=== PATIENT | male | born 1990 | race Caucasian/White ===

== ENCOUNTER 2018-03-29 08:04 | Observation (INO) ==
[2018-03-29] MEDS ORDERED: OXYCODONE Oral CONC 10 MG/0.5 ML ORAL.SYG SL ONE (10:41)
[2018-03-29] MEDS ORDERED: Piperacillin/Tazobactam 3.375 GM in 0.9 % Sodium Chloride Mini Bag 100 ML IVPB ONE (11:19)
--- NOTE | 2018-03-29 14:28 | Anesthesia Evaluation PreOp ---
Date of Encounter: 03/29/18 Time of Encounter: 14:25 - Past History Planned Operation: Laparoscopic Appendectomy Cardiac History: Denies any Significant Hx Pulmonary History: Denies Any Significant HX INVENTORY AND PRICING ASSOCIATE History: Denies Any Significant HX Other Medical History: GERD, Other (obesity BMI=42.7) Anesthesia History: Past Anesthesia (no prior general anesthesia) Alcohol Use: rarely Drug use: none Medications and Allergies No Known Home Drugs 03/29/18 [History] 3 Allergy/AdvReac Type Severity Reaction Status Date / Time No Known Allergies Allergy Verified 03/29/18 04:24 - Meds/Allergy Pre-op Review Medications Reviewed: Yes Allergies Reviewed: Yes Beta Blockers on Current Med List: No Anesthesia Results - Labs Laboratory Tests 03/29/18 05:00 PT 14.0 H INR 1.2 APTT 43.1 H Anesthesia Exam Vital Signs/O2 Sat, Most Current Temp Pulse Resp BP Pulse Ox 98.1 F 74 16 129/79 97 03/29/18 11:59 03/29/18 11:59 03/29/18 11:59 03/29/18 11:59 03/29/18 11:59 Height: 5'9'' Weight: 289 lbs NPO (# of Hours): 8 Pain Scale: 9 (abdomen) Pain Scale Used: Numeric (1 - 10) - HEENT Pupil (Motor): EOMI Mallampati: III Teeth: Normal (chipped upper front tooth, lower right molar) Oral Opening: Greater than 3 - INVENTORY AND PRICING ASSOCIATE LOC: Oriented INVENTORY AND PRICING ASSOCIATE Motor: Normal RUE, Normal LUE, Normal RLE, Normal LLE, Normal Face INVENTORY AND PRICING ASSOCIATE Sensory: Normal: RUE, LUE, RLE, LLE, Face - Cardiac Rhythm: Regular Murmur: None - Pulmonary Breath Sounds: bilateral Clear Respiratory Effort: Symmetrical Anesthesia Assess/Plan ASA Score: 3 Modified [place] Scale for Level of Consciousness: Cooperative, oriented, and tranquil Anesthetic Plan: General Monitoring Plan: Standard Monitors Recovery Plan: PACU
[2018-03-29] MEDS ORDERED: *HR* Midazolam HCl 2 MG/2 ML VIAL ONE (14:30)
[2018-03-29] MEDS ORDERED: *HR* FentaNYL (PF) 100 MCG/2 ML VIAL ONE ×2 (14:30→15:30)
[2018-03-29] MEDS ORDERED: *HR* Propofol 200 MG/20 ML VIAL IVP ONE (14:31)
[2018-03-29] MEDS ORDERED: Lidocaine -MPF 2% 2 ML VIAL ONE (14:32)
[2018-03-29] MEDS ORDERED: *HR* Succinylcholine 200 MG/10 ML VIAL IVP ONE (14:34)
[2018-03-29] MEDS ORDERED: Lidocaine -MPF 4% 5 ML AMPUL ONE (15:14)
[2018-03-29] MEDS ORDERED: Ondansetron 4 MG/2 ML VIAL ONE (15:30)
[2018-03-29] MEDS ORDERED: Dexamethasone 4 MG/ML VIAL ONE (15:30)
[2018-03-29] MEDS ORDERED: *HR* Rocuronium Bromide 50 MG/5 ML VIAL ONE (15:32)
[2018-03-29] MEDS ORDERED: MORPHINE SUL Oral CONC 10 MG/0.5 ML ORAL.SYG SL PRN (15:41)
[2018-03-29] MEDS ORDERED: *HR* FentaNYL (PF) 100 MCG/2 ML VIAL IVP PRN (15:41)
[2018-03-29] MEDS ORDERED: *HR* Promethazine 25 MG/ML VIAL IVP PRN (15:41)
[2018-03-29] MEDS ORDERED: Acetaminophen IV 1,000 MG/100 ML INFUS..BTL IVPB ONE (15:41)
[2018-03-29] MEDS ORDERED: Ketorolac 30 MG/ML VIAL ONE (15:48)
[2018-03-29] MEDS ORDERED: Neostigmine Methylsulfate 3 MG/3 ML SYRINGE ONE (15:53)
--- NOTE | 2018-03-29 16:19 | General Surg History&Physical ---
Date of Encounter: 03/29/18 History of Present Illness Chief complaint: HPI: Mr. Delacruz is a 28 year old male Past Med Surg Social Fam HX - Past Medical History Medical history: no medical history Psychiatric history: no psych history - Social History Smoking Status: Never smoker Smokeless Tobacco Status: No Alcohol use: rarely Drug use: none Medications and Allergies No Known Home Drugs 03/29/18 [History] 3 Allergy/AdvReac Type Severity Reaction Status Date / Time No Known Allergies Allergy Verified 03/29/18 04:24 Review of Systems All systems PM: The remainder of the systems were reviewed and are negative General Surgery Exam Initial Vital Signs Temp Pulse Resp BP Pulse Ox 98.1 F 74 16 129/79 97 03/29/18 11:59 03/29/18 11:59 03/29/18 11:59 03/29/18 11:59 03/29/18 11:59 Results - Labs All other labs normal.
--- NOTE | 2018-03-29 16:49 | Anesthesia Evaluation Post Op ---
Date of Encounter: 03/29/18 Time of Encounter: 16:48 - Vital Signs Vital Signs: Vital Signs/O2 Sat, Most Current Temp Pulse Resp BP Pulse Ox 98.2 F 65 16 121/80 93 03/29/18 16:18 03/29/18 16:38 03/29/18 16:38 03/29/18 16:38 03/29/18 16:38 - Lungs Lungs: Clear Ascult./Percussion - Airway Airway: Non-obstructed - Cardiovascular Regular Rate - Mental Status Mental Status: Asleep with brisk response to light stimulation - Pain Pain Scale: 2 Pain Scale used: Numeric (1 - 10) - Nausea Vomiting Nausea Vomiting: Not Present - Hydration Hydration: NPO, Has not voided - Discharge PostOp Status: Transfer Patient to floor
--- NOTE | 2018-03-29 20:29 | Operative Note ---
Date of procedure: 03/29/18 Pre-op diagnosis: acute appendicitis Post-op diagnosis: same Procedure: laparoscopic appendectomy Implants: none Complications: none Anesthesia: GETA Local Anesthetics: 0.5% Sensorcaine HCL SubQ (cc) Surgeon: Chase Cortez Was there an observation assistant present: Yes Fire Tower Keeper: Yamel Madison Estimated blood loss (cc): 5 Specimen: appendix Condition: stable Disposition: PACU Procedure in Detail: The patient was brought into the operating room suite. The patient was placed in the supine position. Mechanical DVT prophylaxis was initiated. The patient underwent smooth induction of general endotracheal anesthesia. The patient was prepped and draped in the usual fashion. Preoperative antibiotics were given. A timeout was held identifying the correct patient, pathology, and procedure. Everyone was in agreement and we began a procedure. Incision to Mesenteric Window I started bycreating a supraumbilical incision and via open Hammonds technique entered into the abdomen. I then inserted the 10 trocar followed by the camera to visualize the intraabdominal cavity. I then created a 5 mm incision suprapubically and inserted the 5 mm trocar under direct visualization. Roughly 1 handbreadth lateral to the umbilical incision I created another 5 mm incision and inserted another 5 mm trocar under direct visualization. I then inserted the nontraumatic instruments into the 5 mm ports and began the procedure. I was able to identify the tinea coli coalescing at the base of the cecum to identify the appendix. the appendix was clearly inflammed. Using the nontraumatic grasper I was able to grasp the appendix and then using the [place] dissector was able to create a mesenteric window. Mesenteric Window to Appendectomy I then inserted the nontraumatic grasper into the same mesenteric window to widen it. I then grasped the appendix and switched from the 10 mm camera to the 5 mm camera so that we can insert the stapler through the umbilical port. The teeth of the stapler through the mesenteric window. It should be stated that the stapler was a 45 mm bowel load stapler. It was positioned at the base of the appendix and I was able to confirm under direct visualization that the teeth contained no other structures such as the cecum. I then fired the stapler and resected the appendix from the base of the cecum. I then loaded up a vascular load stapler and then in the similar fashion did fire across the mesentery. Retrieval to Closure I then inserted the Endo Catch bag to retrieve the specimen which was intact upon retrieval. I then switched back to the 10 mm camera and inserted the nontraumatic grasper as well as a suction-cannon fire direction specialist into the 5 mm ports. And under direct visualization I was able to appreciate the staple line of the mesoappendix as well as the staple line of the base of the cecum. There was no obvious leaking nor bleeding. The pelvis did not have any collection of fluid. I then concluded the procedure, turned off the insufflation, removed the trochars under direct visualization, and then closed the umbilical fascia using the Vicryl suture in a figure of 8 fashion. I then closed all incisions with interrupted 4-0 Monocryl. And then sealed with Dermabon. It should be stated that I did use 0.5% Marcaine as a local anesthetic. The patient tolerated the procedure well and did go back to PACU in stable condition.
[2018-03-29] MEDS ORDERED: 0.9 % Sodium Chloride 1,000 ML IVC SCH (20:37)
[2018-03-29] MEDS: *HR* OxyCODONE Immed Rel 5 MG TABLET PO PRN (21:22)
--- NOTE | 2018-03-29 22:07 | General Surg History&Physical ---
Date of Encounter: 03/29/18 Time of Encounter: 12:30 Assessment and Plan (1) Acute appendicitis Current Visit: Yes Status: Acute 28M with acute appendicitis; NPO IVF abx OR today The assessment and plan as outlined above was discussed with the patient and/or family members who expressed understanding and agreement. All questions were answered. Qualifiers: Acute appendicitis type: with localized peritonitis Qualified Code(s): K35.3 - Acute appendicitis with localized peritonitis History of Present Illness Chief complaint: acute appendicitis HPI: Mr. Delacruz is a 28 year old male otherwise healthy with two days of abdominal pain. The pain started diffusely but localize to the right side. Due to the worsening pain, the pain presented to an OSH facility prior to transfer here due to CT confirmation of acute appendicitis; All imaging was reviewed and interprete by me. Past Med Surg Social Fam HX - Past Medical History Medical history: no medical history Psychiatric history: no psych history - Past Surgical History Surgical History: no surgical history - Social History Smoking Status: Never smoker Smokeless Tobacco Status: No Alcohol use: rarely Drug use: none Medications and Allergies No Known Home Drugs 03/29/18 [History] 3 Allergy/AdvReac Type Severity Reaction Status Date / Time No Known Allergies Allergy Verified 03/29/18 04:24 Review of Systems All systems PM: The remainder of the systems were reviewed and are negative General Surgery Exam Initial Vital Signs Temp Pulse Resp BP Pulse Ox 98.1 F 74 16 129/79 97 03/29/18 11:59 03/29/18 11:59 03/29/18 11:59 03/29/18 11:59 03/29/18 11:59 - General physical appearance no distress - Eyes normal ocular movement - ENT normocephalic - Neck no lymphadectomy - Respiratory normal expansion, normal respiratory effort - Cardiovascular Cardiovascular exam: Present: RRR - Abdomen Abdomen general surgery: Present: soft, tender Abdominal Tenderness: Present: RLQ (tender at mcburney's point) - Integumentary Integumentary general surgery: Present: warm and dry - Neurologic Present: CN 2-12 grossly intact - Musculoskeletal Present: normal gait, normal posture - Psychiatric Psychiatric general surgery: Present: A&Ox3 Results - Labs All other labs normal. - Imaging CT scan - abdomen: report reviewed, image reviewed CT scan - pelvis: report reviewed, image reviewed - VTE Documentation of Mechanical Device: Intermittent pneumatic compression device
[2018-03-30] MEDS: Piperacillin/Tazobactam 3.375 GM in 0.9 % Sodium Chloride Mini Bag 100 ML IVPB SCH ×2 (00:58→07:52)
[2018-03-30] MEDS: *HR* OxyCODONE Immed Rel 5 MG TABLET PO PRN (03:54)
[2018-03-30 06:51] VITALS: BP 107/72
[2018-03-30] MEDS ORDERED: Acetaminophen 325 MG TABLET PO PRN (09:49)
--- NOTE | 2018-03-30 09:53 | Discharge Summary ---
Orders not resulted at time of discharge: Pending orders 03/29/18 15:55 Surgical Pathology [PTH] Routine Date of Encounter: 03/30/18 Time of Encounter: 09:54 - Discharge Diagnosis (1) Acute appendicitis Priority: Primary Status: Inactive Comments: POD #1 s/p lap appy; okay for discharge today can follow up with [facility] in two weeks or see me, Dr. Cortez, if need/want to be cleared from surgery to return back to work sooner Qualifiers: Acute appendicitis type: with localized peritonitis Qualified Code(s): K35.3 - Acute appendicitis with localized peritonitis General Surgery Exam Initial Vital Signs Temp Pulse Resp BP Pulse Ox 98.1 F 74 16 129/79 97 03/29/18 11:59 03/29/18 11:59 03/29/18 11:59 03/29/18 11:59 03/29/18 11:59 - General physical appearance no distress - Eyes normal ocular movement - ENT normocephalic - Neck no lymphadectomy - Respiratory normal expansion, normal respiratory effort - Cardiovascular Cardiovascular exam: Present: RRR - Abdomen Abdomen general surgery: Present: soft, tender (appropriately tender along incisions) - Incision Incision: Present: clean and dry, intact - Integumentary Integumentary general surgery: Present: warm and dry - Neurologic Present: CN 2-12 grossly intact - Musculoskeletal Present: normal posture - Psychiatric Psychiatric general surgery: Present: A&Ox3 - Hospital Course Hospital course: Mr. Delacruz is a 28 year old male - Time Spent with Patient Total time spent providing and/or coordinating discharge services: - Discharge Medications Home Medications: No Known Home Drugs 03/29/18 [History] Allergies/Adverse Reactions: 3 Allergy/AdvReac Type Severity Reaction Status Date / Time No Known Allergies Allergy Verified 03/29/18 04:24 Date of admission: 03/29/18 09:30 Primary care physician: Hannah Orozco Discharging clinician: Chase Cortez Anticipated date of discharge: 03/30/18 - Patient Status Disposition: Home, Self-Care Condition: Good Overall status at discharge: patient is back to baseline - Discharge Instructions Follow Up With: Hannah Orozco CNP [Primary Care Provider] - Lucinda Phillip CNP [Advanced Practice Nurse] - 04/16/18 Chase Cortez MD [Non-Partnered Physician] - (see Dr. Cortez if you need/want to be cleared prior to your two week appointment with QUALITY ASSURANCE ANALYST) - Diet and Activity Activity: increase activity as tolerated Diet: advance to your usual diet
--- NOTE | 2018-03-30 10:24 | Discharge Summary ---
Orders not resulted at time of discharge: Pending orders 03/29/18 15:55 Surgical Pathology [PTH] Routine Date of Encounter: 03/30/18 Time of Encounter: 10:24 - Discharge Diagnosis (1) Acute appendicitis Priority: Primary Status: Inactive Comments: see prior summary Qualifiers: Acute appendicitis type: with localized peritonitis Qualified Code(s): K35.3 - Acute appendicitis with localized peritonitis General Surgery Exam Initial Vital Signs Temp Pulse Resp BP Pulse Ox 98.1 F 74 16 129/79 97 03/29/18 11:59 03/29/18 11:59 03/29/18 11:59 03/29/18 11:59 03/29/18 11:59 - Hospital Course Hospital course: Mr. Delacruz is a 28 year old male - Time Spent with Patient Total time spent providing and/or coordinating discharge services: - Discharge Medications Prescriptions: OxyCODONE Immed Rel [Roxicodone 5 MG] 5 mg PO Q6HR PRN 5 Days #20 tablet PRN Reason: MODERATE PAIN Home Medications: OxyCODONE Immed Rel [Roxicodone 5 MG] 5 mg PO Q6HR PRN 5 Days #20 tablet [Rx] Allergies/Adverse Reactions: 3 Allergy/AdvReac Type Severity Reaction Status Date / Time No Known Allergies Allergy Verified 03/29/18 04:24 Date of admission: 03/29/18 09:30 Primary care physician: Hannah Orozco - Patient Status Disposition: Home, Self-Care Condition: Good - Discharge Instructions Follow Up With: Chase Cortez MD [Non-Partnered Physician] - (see Dr. Cortez if you need/want to be cleared prior to your two week appointment with WATER PURIFIER) Hannah Orozco CNP [Primary Care Provider] - Lucinda Phillip CNP [Advanced Practice Nurse] - 04/16/18
== END 2018-03-30 11:24 | disposition home or self-care (01) ==
LOC: 3ANU 09:30 → INTOOBSV 09:30
PROVIDERS: ADMIT Surgery; ATTEND Surgery